=== PATIENT | female | born 2005 | race Caucasian/White ===

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

== ENCOUNTER 2024-09-28 12:35 | Emergency (ER) | payer OTHER, SELFPAY ==
[2024-09-28 12:40] VITALS: BP 119/68; PULSE 88; RESP 16; TEMP 36.6; O2SAT 97; BMI 39.3
--- NOTE | 2024-09-28 12:50 | ED_ITS ---
HPI - Abdominal Pain <María Palma PA-C - Last Filed: 09/28/24 14:20> General Chief Complaint: Abdominal Pain Stated Complaint: WIC; Cramping, Missed Period Time Seen by Provider: 09/28/24 12:50 History of Present Illness HPI narrative: Ms. Woods is a pleasant 19-year-old female with no reported past medical history who presents to the emergency department for lower abdominal cramping and missed period x2 weeks. Patient reports her last menstrual period was at the end of July. She normally has a menstrual period every month that last about 7 days. At the end of August when she expected to have a menstrual period, she did not have 1. She did have about 1 day of brown spotting which was abnormal for her. She went to the [facility] walk-in clinic and reports having blood work any negative test at that time. She was treated for a UTI with Keflex. States that she is on day 5 of the Keflex but her lower abdominal cramping has persisted. She has occasional nausea and chills. She has occasional dysuria. She denies any abnormal vaginal discharge or bleeding at this time. No focal abdominal pain. No change in bowel movements. She is currently sexually active with her boyfriend who is here in the ED. No pain during intercourse. Home tests are negative. She has not on any control or prescription medications. She does not have a PCP or OBGYN. Related Data Home Medications Medication Instructions Recorded Confirmed No Known Home Medications 06/03/19 06/03/19 Allergies Allergy/AdvReac Type Severity Reaction Status Date / Time No Known Drug Allergies Allergy Verified 06/03/19 13:18 Review of Systems <María Palma PA-C - Last Filed: 09/28/24 14:20> Review of Systems ROS Unobtainable: All systems reviewed & are unremarkable except as noted in HPI and below Exam <María Palma PA-C - Last Filed: 09/28/24 14:20> Narrative Exam Narrative: GENERAL: 19 year old patient appears stated age. Well-developed patient, in no acute distress. HEAD: Atraumatic. Normocephalic. EYES: Extraocular motions intact. No scleral icterus. No injection or drainage. ENT: Nose without bleeding, purulent drainage. Throat without erythema, tonsillar hypertrophy or exudate. Airway patent. NECK: Trachea midline. Cervical ROM intact. CARDIOVASCULAR: Regular rate and rhythm. RESPIRATORY: ?Nonlabored respirations. ?Speaking in clear, full sentences. ?Clear to auscultation. Breath sounds equal bilaterally. No wheezes, rales, or rhonchi. ? GASTROINTESTINAL: Abdomen soft, non-tender, nondistended. Normal bowel sounds. PELVIC EXAM: Patient gave verbal consent for pelvic exam. Female nurse credit administration officer, Kinza, present for exam. Patient had normal-appearing external genitalia with no lesions. No abnormal vaginal discharge, scant clear vaginal discharge present. No cervical motion tenderness or adnexal tenderness on bimanual examination. EXTREMITIES: No edema or joint tenderness. BACK: Nontender without deformity or crepitance. No flank tenderness. NEURO: AOx3. ?Clear speech. ?Moves all 4 extremities appropriately. SKIN: No rash or erythema of visible areas Initial Vital Signs Initial Vital Signs: Vital Signs Temperature 97.9 F 09/28/24 12:40 Pulse Rate 88 09/28/24 12:40 Respiratory Rate 16 09/28/24 12:40 Blood Pressure 119/68 09/28/24 12:40 Pulse Oximetry 97 09/28/24 12:40 Oxygen Delivery Method Room Air 09/28/24 12:40 <Mei Esquivel DO - Last Filed: 10/03/24 08:38> Initial Vital Signs Initial Vital Signs: Vital Signs Temperature 97.9 F 09/28/24 12:40 Pulse Rate 88 09/28/24 12:40 Respiratory Rate 16 09/28/24 12:40 Blood Pressure 119/68 09/28/24 12:40 Pulse Oximetry 97 09/28/24 12:40 Oxygen Delivery Method Room Air 09/28/24 12:40 Course <María Palma PA-C - Last Filed: 09/28/24 14:20> Orders Ordered: Discontinued Medications Acetaminophen (Acetaminophen 325 Mg Tablet) 975 mg PO NOW ONE Stop: 09/28/24 13:43 Last Admin: 09/28/24 13:50 Dose: 975 mg Documented By: DON Ibuprofen (Ibuprofen 400 Mg Tablet) 400 mg PO NOW ONE Stop: 09/28/24 13:43 Last Admin: 09/28/24 13:50 Dose: 400 mg Documented By: ES Vital Signs Vital signs: Vital Signs - 8 hr 09/28/24 12:40 Temperature 97.9 F Pulse Rate 88 Respiratory Rate 16 Blood Pressure 119/68 Pulse Oximetry 97 Oxygen Delivery Method Room Air <Mei Esquivel DO - Last Filed: 10/03/24 08:38> Orders Ordered: Discontinued Medications Acetaminophen (Acetaminophen 325 Mg Tablet) 975 mg PO NOW ONE Stop: 09/28/24 13:43 Last Admin: 09/28/24 13:50 Dose: 975 mg Documented By: ES Ibuprofen (Ibuprofen 400 Mg Tablet) 400 mg PO NOW ONE Stop: 09/28/24 13:43 Last Admin: 09/28/24 13:50 Dose: 400 mg Documented By: ES Vital Signs Vital signs: Vital Signs - 8 hr 09/28/24 12:40 Temperature 97.9 F Pulse Rate 88 Respiratory Rate 16 Blood Pressure 119/68 Pulse Oximetry 97 Oxygen Delivery Method Room Air MDM - Abdominal Pain <María Palma PA-C - Last Filed: 09/28/24 14:20> Lab Data Labs: Lab Results 09/28/24 09/28/24 Range/Units 12:44 13:35 Urine Color Yellow Urine Appearance Clear Urine pH 7.0 (4.5-8.0) Ur Specific [place] 1.010 (1.000-1.035) Urine Protein Negative (Negative) Urine Glucose (UA) Negative (Negative) g/dL Urine Ketones Negative (NEGATIVE) Urine Occult Blood Negative (Negative) Urine Nitrate Negative (Negative) Urine Bilirubin Negative (NEGATIVE) Urine Urobilinogen 0.2 (0.2) E.U./dL Ur Leukocyte Esterase Trace H (NEGATIVE) Urine RBC 0-1/hpf (0-5/HPF) Urine WBC 0-1/hpf (0-5/HPF) Ur Squamous Epith Cells 0-1 /hpf (0-5/HPF) Urine Bacteria Few (2-10) H (None) Ur Culture Indicated? Cult not indicated Vol Urine Centrifuged 10ml (spun) Urine Test Negative (Negative) C.trachomatis Ampl DNA Negative (Negative) M. genitalium (PCR) Negative (Negative) N.gonorrhoeae Ampl DNA Negative (Negative) MDM Narrative Medical decision making narrative: 19-year-old female with no reported past medical history who presents to the emergency department for lower abdominal cramping and missed period x2 weeks. Differential diagnosis includes but is not limited to irregular menstrual., early , ectopic , UTI, STD, PID, etc. On exam the patient is in no acute distress, nontoxic appearing, vital signs within normal limits. Her abdomen is soft and nontender. We will obtain UA and test. We will proceed with pelvic exam and swabs. test negative. Trace urine leuks few bacteria. Advised patient to finish her Keflex but no indication for new antibiotic. Pelvic exam normal. Vaginal swabs were obtained, she declines empiric STD treatment. She was given Tylenol and ibuprofen for her pain. Wet prep negative for clue cells, yeast, trichomonas. Occasional white blood cells which are mixed genital sweta. Genital culture and gonorrhea/chlamydia testing still pending. Overall patient was very reassured by negative test and exam. I advised she follow up with OBGYN for irregular menstrual period, take home test if she is concerned for , she will be called if any vaginal swabs require antibiotics. I provided her with information to follow up with an OBGYN and PCP. Discussed ER return precautions. Patient is feeling better and stable for discharge home. Pt was called at 1418 and informed of wet prep results. <Mei Esquivel, DO - Last Filed: 10/03/24 08:38> Lab Data Labs: Lab Results 09/28/24 09/28/24 Range/Units 12:44 13:35 Urine Color Yellow Urine Appearance Clear Urine pH 7.0 (4.5-8.0) Ur Specific [place] 1.010 (1.000-1.035) Urine Protein Negative (Negative) Urine Glucose (UA) Negative (Negative) g/dL Urine Ketones Negative (NEGATIVE) Urine Occult Blood Negative (Negative) Urine Nitrate Negative (Negative) Urine Bilirubin Negative (NEGATIVE) Urine Urobilinogen 0.2 (0.2) E.U./dL Ur Leukocyte Esterase Trace H (NEGATIVE) Urine RBC 0-1/hpf (0-5/HPF) Urine WBC 0-1/hpf (0-5/HPF) Ur Squamous Epith Cells 0-1 /hpf (0-5/HPF) Urine Bacteria Few (2-10) H (None) Ur Culture Indicated? Cult not indicated Vol Urine Centrifuged 10ml (spun) Urine Test Negative (Negative) C.trachomatis Ampl DNA Negative (Negative) M. genitalium (PCR) Negative (Negative) N.gonorrhoeae Ampl DNA Negative (Negative) Discharge Plan Departure Patient Disposition: Home Clinical Impression: Irregular periods/menstrual cycles, Bilateral lower abdominal cramping Instructions: DI for Abdominal Pain-Adult Activity Restrictions/Additional Instructions: Today you were evaluated for lower abdominal cramping and missed menstrual p eriod. Your test was negative. Your physical exam is very reassuring however it is important to follow up as soon as you can with the primary care doctor and an OBGYN doctor for further evaluation. Both [address] and [facility] of primary care doctors and OBGYN. At [address], you can call schedule an appointment with Dr. Luis Sanabria, Digital Data Analyst (or another provider). Call . If you develop fevers, worsening abdominal pain, or other concerns, please return to the ER. Please follow up with a primary care doctor or OBGYN within the next 2-3 days for ER follow-up. (If you do not have a PCP you can call [phone]. ?to schedule an appointment with an [facility] Primary Care Provider) IF YOU DEVELOP ANY NEW OR WORSENING SYMPTOMS, RETURN TO THE ER! Please read the attached instructions, they highlight more specific treatments and interventions for you at home. Thank you for letting me participate in your care, María Palma PA-C Prescriptions: No Action No Known Home Medications Referrals: [facility],Doctor, [Primary Care Provider] - Stand Alone Forms: Patient Portal/API/Survey ED Sign-out <Mei Esquivel DO - Last Filed: 10/03/24 08:38> Cosign ED Attending Keily Attestation: I was immediately available in the department for consultation.
[2024-09-28 12:58] LABS: Appearance Urine UA CLEAR; Bilirubin Urine UA NEGATIVE (NEGATIVE); Color Urine UA YELLOW; Glucose Urine UA NEGATIVE (Negative); Ketones Urine UA NEGATIVE (NEGATIVE); Leukocyte Esterase Urine UA TRACE (NEGATIVE); Nitrite Urine UA NEGATIVE (Negative); Occult Blood Urine UA NEGATIVE (Negative); Protein Urine UA NEGATIVE (Negative); Urobilinogen Urine UA 0.2 E.U./dL (0.2)
[2024-09-28 13:02] LABS: Pregnancy Test Urine Negative (Negative)
[2024-09-28 13:05] LABS: Bacteria Urine Few (2-10); Culture Indicated Urine Cult Not Indicated; RBC Urine 0-1/HPF (0-5/HPF); Squamous Epithelial Cell Urine 0-1 /HPF (0-5/HPF); Urine Volume 10mL (spun); WBC Urine 0-1/HPF (0-5/HPF)
[2024-09-28] MEDS: IBUPROFEN 400 MG TABLET PO (13:50)
[2024-09-28] MEDS: ACETAMINOPHEN 325 MG TABLET 975 MG PO (13:50)
--- NOTE | 2024-09-28 13:54 | PC.NURSE ---
Pt would like to d/c prior to getting results but would like to be called with results @ [phone].
[2024-10-02 10:12] LABS: Chlamydia trachomatis Negative (Negative); Mycoplasma genitalium Negative (Negative); Neisseria gonorrhoeae Negative (Negative)
== END 2024-09-28 14:03 | disposition home or self-care (01) ==
PROVIDERS: Emergency Provider Physician Assistant
DX: N92.6 Irregular menstruation, unspecified (principal); R10.32 Left lower quadrant pain; R10.31 Right lower quadrant pain; R30.0 Dysuria
CPT/HCPCS: 36415; 81001; 81025; 87070; 87205; 87210; 87491; 87563; 87591; 99283